=== PATIENT | male | born 1985 | race Caucasian/White ===

== ENCOUNTER 2017-06-12 16:19 | Emergency (ER) | payer OTHER ==
[2017-06-12] MEDS ORDERED: LORazepam 2 MG/ML INJ IVP ONE ×3 (16:24→17:03)
[2017-06-12] MEDS ORDERED: NS 1,000 ML IV ONE ×2 (16:24→17:03)
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
[2017-06-12 18:29] VITALS: BP 144/87; RESP 16; O2SAT 94
[2017-06-12 19:56] VITALS: PULSE 92; TEMP 98.1
[2017-06-12] MEDS ORDERED: LORAZEPAM 1 MG PREPACK#4 BTL TAKEHOME ONE (21:38)
== END 2017-06-12 19:56 | disposition home or self-care (01) ==
LOC: EDUNIT#
DX: R56.9 Unspecified convulsions (principal); F10.239 Alcohol dependence with withdrawal, unspecified; E86.9 Volume depletion, unspecified
CPT/HCPCS: 96374; G0480; J2060

== ENCOUNTER → 2018-05-22 | Outpatient (CLI) | payer OTHER ==
[~2018-05-22] MED LIST: IOPAMIDOL (ISOVUE 370) 75 ML BTL IV ONE
== END ==
LOC: FIMAGING 13:36
PROVIDERS: ATTEND Internal Medicine
DX: R10.9 Unspecified abdominal pain (principal)
CPT/HCPCS: Q9967